=== PATIENT | male | born 1995 | race Caucasian/White ===

== ENCOUNTER 2017-06-06 21:14 | Emergency (ER) | payer BC ==
--- NOTE | 2017-06-06 22:02 | EDPHY ---
H & P Smoking Status: Never smoked Time Seen by Provider: 06/06/17 21:27 HPI/ROS: CHIEF COMPLAINT: I think I have pneumonia HISTORY OF PRESENT ILLNESS: 21-year-old male has been sick with a cough for the last 3 weeks. He reports a fever 1 week ago on 2 separate days but none since. Today, the patient's cough worsened and was productive of copious amounts of clear mucus. Patient also reports anterior chest pain. Patient denies fever today. No shortness of breath. No palpitations. Denies vomiting, diarrhea, nausea, urinary complaints, headache. No influenza vaccination. No sore throat, runny nose, or upper respiratory infection symptoms REVIEW OF SYSTEMS: Aside from elements discussed in the HPI, a comprehensive 10-point review of systems was reviewed and is negative. PAST MEDICAL HISTORY: Patient denies. No family history of thromboembolic disease. SOCIAL HISTORY: Nonsmoker. No alcohol. VITAL SIGNS Reviewed by me. Tachycardic to 122 on arrival. GENERAL: Well-developed, well-nourished, no obvious respiratory distress. No wheezing or stridor. HEENT: Atraumatic. Eyes: No icterus, no injection. Mouth: moist mucous membranes. No erythema or lesions. Neck: supple with no adenopathy. LUNGS: Rhonchi in the right lower lobe. No wheezes. CARDIAC: Tachycardic. No rubs murmurs or gallops. ABDOMEN: Soft, nontender, nondistended, bowel sounds normal. BACK: No CVA tenderness. EXTREMITIES: No trauma. No edema. Range of motion is normal throughout. NEURO: Alert and oriented, grossly nonfocal. SKIN: Warm and dry, no rash. PSYCHIATRIC: Normal mentation, no agitation. (Noemy Whelan) Constitutional: Initial Vital Signs Temperature (C) 37.1 C 06/06/17 21:15 Heart Rate 122 H 06/06/17 21:15 Respiratory Rate 20 06/06/17 21:15 Blood Pressure 138/95 H 06/06/17 21:15 O2 Sat (%) 98 06/06/17 21:15 O2 Delivery Mode Room Air Allergies/Adverse Reactions: No Known Allergies Allergy (Unverified 06/06/17 21:18) Home Medications: Medication Instructions Recorded Azithromycin [Zithromax] 250 mg PO DAILY #4 tab 06/06/17 Benzonatate [Tessalon Pearles (RX)] 100 mg PO Q6H PRN #20 cap 06/07/17 Medical Decision Making - Diagnostics Imaging: I viewed and interpreted images myself - Diagnostics Imaging Results: Imaging Impressions Chest X-Ray 06/06/17 21:34 Impression: No acute thoracic abnormality. Dr. Pan discussed these findings by telephone with Noemy Whelan MD on 05/2017 at 23:29 hours. Xray: Chest x-ray was obtained. I viewed the images myself on the PACS system. My interpretation of the images is: No definitive infiltrate.. The radiology interpretation is: Pending. I discussed the results with the patient. (Noemy Whelan) ED Course/Re-evaluation: 21-year-old male with a three-week history of a cough, now presenting with worsening cough yesterday, tachycardic to 122, rhonchus breath sounds on the right lower lobe. Chest x-ray does not demonstrate a clear infiltrate. Patient had IV placed and receives normal saline. Influenza screen was sent as his symptoms had worsened significantly yesterday and today. Re-examination 11:30 p.m.. Patient continues to be tachycardic at 116 a.m. with a frequent cough. He does have some wheezes auscultated when coughing. Temperature is 37.4degrees. Patient received Tylenol, ibuprofen, neb treatment, an additional L of fluid. Patient's EKG demonstrates sinus tachycardia at a rate of 122. Given the fact that his primary complaint is chest discomfort as well as a cough, D-dimer was added to evaluate for a pulmonary embolism. Patient's care was assumed by Dr. Aurea Cooper pending further workup. (Noemy Whelan) 1:20 a.m.- The patient has been stable during his the last 2 hours. He is feeling much better after receiving the albuterol nebulizer treatment. Heart rate is now ranging from 98-105. The remainder of his vital signs are normal. He is asking to be discharged home. He does not want any additional fluids in the emergency department. D-dimer has resulted and is unremarkable. I explained that he likely has a bronchitis and we will give him azithromycin for this. I did also explain that there is some diagnostic uncertainty in this case given his unremarkable chest x-ray and persistent symptoms. I have also ordered him to go home with an albuterol inhaler and a prescription for Tessalon Perles. I have instructed him that he should have follow-up tomorrow at [facility] for recheck. He is in agreement with this and thinks he will be able to go. He is happy with the discharge plan. (Aurea Cooper) Differential Diagnosis: Differential diagnosis for the patient's cough and chest pain was considered including but not limited to viral versus bacterial bronchitis, viral syndrome, pulmonary embolism, mononucleosis, upper respiratory infection, lower respiratory infection, and bronchospasm. (Noemy Whelan) - Data Points Laboratory Results: Laboratory Results 06/06/17 22:25 06/06/17 22:25 06/07/17 06/07/17 06/06/17 00:11 00:11 22:35 WBC RBC Hgb Hct MCV MCH MCHC RDW Plt Count MPV Neut % (Auto) Lymph % (Auto) [place] % (Auto) Eos % (Auto) Baso % (Auto) Nucleat RBC Rel Count Absolute Neuts (auto) Absolute Lymphs (auto) Absolute Monos (auto) Absolute Eos (auto) Absolute Basos (auto) Absolute Nucleated RBC Immature Gran % Immature Gran # Atypical Lymphocytes Platelet Estimate Polychromasia Microcytic Cells Tear Drop Cells Smear Review By D-Dimer < 0.27 ug/mLFEU ug/mLFEU (0.00-0.50) Sodium Potassium Chloride Carbon Dioxide Anion Gap BUN Creatinine Estimated GFR Glucose Calcium TSH 1.960 uIU/mL uIU/mL (0.465-4.680) Nasal Influenza A PCR NEGATIVE FOR FLU A (NEGATIVE) Nasal Influenza B PCR NEGATIVE FOR FLU B (NEGATIVE) Monoscreen 06/06/17 06/06/17 06/06/17 22:25 22:25 22:25 WBC 13.67 10^3/uL H 10^3/uL (3.80-9.50) RBC 6.18 10^6/uL 10^6/uL (4.40-6.38) Hgb 13.1 g/dL L g/dL (13.7-17.5) Hct 39.0 % L % (40.0-51.0) MCV 63.1 fL L fL (81.5-99.8) MCH 21.2 pg L pg (27.9-34.1) MCHC 33.6 g/dL g/dL (32.4-36.7) RDW 16.9 % H % (11.5-15.2) Plt Count 322 10^3/uL 10^3/uL (150-400) MPV 10.7 fL fL (8.7-11.7) Neut % (Auto) 71.8 % % (39.3-74.2) Lymph % (Auto) 16.8 % % (15.0-45.0) [place] % (Auto) 8.3 % % (4.5-13.0) Eos % (Auto) 1.8 % % (0.6-7.6) Baso % (Auto) 0.6 % % (0.3-1.7) Nucleat RBC Rel Count 0.0 % % (0.0-0.2) Absolute Neuts (auto) 9.83 10^3/uL H 10^3/uL (1.70-6.50) Absolute Lymphs (auto) 2.30 10^3/uL 10^3/uL (1.00-3.00) Absolute Monos (auto) 1.13 10^3/uL H 10^3/uL (0.30-0.80) Absolute Eos (auto) 0.24 10^3/uL 10^3/uL (0.03-0.40) Absolute Basos (auto) 0.08 10^3/uL 10^3/uL (0.02-0.10) Absolute Nucleated RBC 0.00 10^3/uL 10^3/uL (0-0.01) Immature Gran % 0.7 % % (0.0-1.1) Immature Gran # 0.09 10^3/uL 10^3/uL (0.00-0.10) Atypical Lymphocytes 1+ H Platelet Estimate ADEQUATE (ADEQ) Polychromasia 1+ H Microcytic Cells 2+ H Tear Drop Cells 1+ H Smear Review By Pending D-Dimer Sodium 137 mEq/L mEq/L (134-144) Potassium 3.4 mEq/L L mEq/L (3.5-5.2) Chloride 101 mEq/L mEq/L (97-110) Carbon Dioxide 23 mEq/l mEq/l (22-31) Anion Gap 13 mEq/L mEq/L (8-16) BUN 15 mg/dL mg/dL (7-23) Creatinine 0.9 mg/dL mg/dL (0.7-1.3) Estimated GFR > 60 Glucose 114 mg/dL H mg/dL (70-100) Calcium 10.2 mg/dL mg/dL (8.5-10.4) TSH Nasal Influenza A PCR Nasal Influenza B PCR Monoscreen NEGATIVE (NEGATIVE) Medications Given: Discontinued Medications Acetaminophen (Tylenol) 1,000 mg PO EDNOW ONE Stop: 06/06/17 23:34 Last Admin: 06/06/17 23:39 Dose: 1,000 mg Albuterol (Proventil Neb) 3 ml IH EDNOW ONE Stop: 06/06/17 23:34 Last Admin: 06/06/17 23:40 Dose: 3 ml Azithromycin (Zithromax) 500 mg PO EDNOW ONE PRN Reason: Protocol Stop: 06/06/17 23:27 Last Admin: 06/06/17 23:39 Dose: 500 mg Sodium Chloride (Ns) 1,000 mls @ 0 mls/hr IV ONCE ONE; Wide Open PRN Reason: Protocol Stop: 06/06/17 22:18 Last Admin: 06/06/17 22:33 Dose: 1,000 mls Sodium Chloride (Ns) 1,000 mls @ 0 mls/hr IV ONCE ONE PRN Reason: Wide Open Stop: 06/06/17 23:41 Last Admin: 06/06/17 23:41 Dose: 1,000 mls Ibuprofen (Motrin) 600 mg PO EDNOW ONE Stop: 06/06/17 23:34 Last Admin: 06/06/17 23:39 Dose: 600 mg Departure - Departure Disposition: Home, Routine, Self-Care Clinical Impression: Cough Acute bronchitis Qualifiers: Bronchitis organism: unspecified organism Qualified Code(s): J20.9 - Acute bronchitis, unspecified Condition: Good Instructions: Acute Bronchitis (ED) Additional Instructions: Please make sure to drink plenty of fluids. Take the medications as prescribed. We would like you to have a recheck in the morning at [facility]. We have found that your heart rate is fast and this could be the sign of an infection. Because of this you need to return to the emergency room if your worse in any way or having any trouble breathing. Referrals: MD CORY [Other] - As per Instructions THOMAS [facility]ill,. [Clinic] - As per Instructions Prescriptions: Azithromycin [Zithromax] 250 mg PO DAILY #4 tab Benzonatate [Tessalon Pearles (RX)] 100 mg PO Q6H PRN #20 cap PRN Reason: Cough, Mild
[2017-06-06] MEDS ORDERED: NS 1,000 ML IV ONE ×2 (22:17→23:40)
[2017-06-06 22:35] LABS: % IMMATURE GRANULYOCYTES 0.7 % (0.0-1.1); ABSOLUTE IMMATURE GRANULOCYTES 0.09 10^3/uL (0.00-0.10); ADD DIFF? NO; ADD MORPH? YES; ADD SCAN? NO; ATYPICAL LYMPHOCYTE FLAG 20 (0-99); FRAGMENT RBC FLAG 20 (0-99); HEMOGLOBIN 13.1 g/dL (13.7-17.5); LEFT SHIFT FLG 0 (0-99); LIPEMIA HEMOLYSIS FLAG 80 (0-99); MEAN CELL HEMOGLOBIN 21.2 pg (27.9-34.1); MEAN CELL HEMOGLOBIN CONCENTR. 33.6 g/dL (32.4-36.7); MEAN PLATELET VOLUME 10.7 fL (8.7-11.7); PLATELET CLUMPS FLAG 20 (0-99); PLATELET COUNT 322 10^3/uL (150-400); RED BLOOD CELL COUNT 6.18 10^6/uL (4.40-6.38); RED CELL DISTRIBUTION WIDTH 16.9 % (11.5-15.2)
[2017-06-06 22:40] LABS: MEAN CELL VOLUME 63.1 fL (81.5-99.8)
[2017-06-06 22:56] LABS: ANION GAP 13 mEq/L (8-16); CALCIUM 10.2 mg/dL (8.5-10.4); CARBON DIOXIDE 23 mEq/l (22-31); CHLORIDE 101 mEq/L (97-110); CREATININE 0.9 mg/dL (0.7-1.3); GLOMERULAR FILTRATION RATE > 60; GLUCOSE 114 mg/dL (70-100); POTASSIUM 3.4 mEq/L (3.5-5.2); SODIUM 137 mEq/L (134-144)
[2017-06-06] MEDS ORDERED: AZITHROMYCIN 250 MG TAB PO ONE (23:26)
[2017-06-06] MEDS ORDERED: ALBUTEROL 3 ML DEYVIAL IH ONE (23:33)
[2017-06-06] MEDS ORDERED: IBUPROFEN 600 MG TAB PO ONE (23:33)
[2017-06-06] MEDS ORDERED: ACETAMINOPHEN 500 MG TAB PO ONE (23:33)
[2017-06-06] MEDS ORDERED: ALBUTEROL INH PREPACK MDI TAKEHOME ONE (23:34)
[2017-06-06 23:35] LABS: MICROCYTES 2+; PLATELET ESTIMATE ADEQUATE (ADEQ)
[2017-06-06 23:36] LABS: POLYCHROMASIA 1+
[2017-06-07] MEDS ORDERED: KETOROLAC 15 MG/1 ML SDV IVP ONE (00:08)
--- NOTE | 2017-06-07 00:08 | CPEKG ---
Heart Rate: 122 RR Interval: 492 P-R Interval: 132 QRSD Interval: 88 QT Interval: 320 QTC Interval: 456 P David: 66 QRS David: 29 T Wave David: 47 EKG Severity - BORDERLINE ECG - EKG Impression: SINUS TACHYCARDIA EKG Impression: BORDERLINE T WAVE ABNORMALITIES Electronically Signed By: Aurea Cooper 08-Jun-2017 05:34:05
[2017-06-07] MEDS ORDERED: ALBUTEROL INH PREPACK MDI TAKEHOME ONE (01:19)
[2017-06-07 01:49] VITALS: BP 131/88; PULSE 95; RESP 18; TEMP 98.6; O2SAT 97
== END 2017-06-07 01:49 | disposition home or self-care (01) ==
DX: J20.9 Acute bronchitis, unspecified (principal)